=== PATIENT | female | born 1955 | race Two or more races ===

== ENCOUNTER → 2023-10-30 | Emergency (ER) | payer OTHER ==
[~2023-10-30] VITALS: Ht 172.7 cm; Wt 99.8 kg
[~2023-10-30] MED LIST: VERAPAMIL ER120 MG PO; VERAPAMIL ER180 MG; VERELAN PM100 MG
== END | disposition left against medical advice (07) ==
LOC: ER 21:20
DX: T17.200A Unspecified foreign body in pharynx causing asphyxiation, initial encounter (principal); I10 Essential (primary) hypertension